=== PATIENT | male | born 1990 | race Caucasian/White ===

== ENCOUNTER → 2021-09-11 | Outpatient (REF) ==
[2021-09-11 12:29] LABS: ALBUMIN 3.9 g/dL (3.5-5.0)
[2021-09-11 12:30] LABS: POTASSIUM 4.1 mmol/L (3.5-5.1)
[2021-09-11 12:31] LABS: CALCIUM 9.5 mg/dL (8.3-10.5)
[2021-09-11 12:32] LABS: TOTAL PROTEIN 7.3 g/dL (6.4-8.3)
[2021-09-11 12:34] LABS: TOTAL BILIRUBIN 1.7 mg/dL (0.2-1.2)
== END ==
LOC: LAB 09:32
PROVIDERS: Urology
DX: Z01.89 Encounter for other specified special examinations (principal)